=== PATIENT | male | born 1970 ===

== ENCOUNTER 2017-01-20 08:25 | Emergency (ER) | payer OTHER ==
[2017-01-20 09:10] VITALS: BP 117/73
--- NOTE | 2017-01-20 10:53 | UC ---
Laceration HPI - HPI Summary HPI Summary: laceration on right pointer finger this morning at 7:30 on a razor blade lots of bleeding at first hasn't taken any medication for pain - History Of Current Complaint Chief Complaint: UCLaceration Stated Complaint: FINGER LACERATION Time Seen by Provider: 01/20/17 10:47 - Allergies/Home Medications Allergies/Adverse Reactions: Allergies Allergy/AdvReac Type Severity Reaction Status Date / Time No Known Allergies Allergy Verified 01/20/17 09:05 Home Medications: Home Medications NK [No Home Medications Reported] 01/20/17 [History Confirmed 01/20/17] PMH/Surg Hx/FS Hx/Imm Hx Previously Healthy: Yes - Surgical History Surgical History: None - Family History Known Family History: Positive: Diabetes - father Negative: Cardiac Disease, Hypertension - Social History Occupation: Employed Full-time Lives: With Family Alcohol Use: Daily Substance Use Type: None Smoking Status (MU): Never Smoked Tobacco Review of Systems Constitutional: Negative Skin: Other - laceration Eyes: Negative ENT: Negative Respiratory: Negative Cardiovascular: Negative Gastrointestinal: Negative Genitourinary: Negative Motor: Negative Neurovascular: Negative Musculoskeletal: Negative Neurological: Negative Psychological: Negative All Other Systems Reviewed And Are Negative: Yes Physical Exam Triage Information Reviewed: Yes Appearance: No Pain Distress, Well-Nourished Vital Signs: Initial Vital Signs Temp 98.5 F 01/20/17 09:06 Pulse 67 01/20/17 09:06 Resp 16 01/20/17 09:06 BP 117/73 01/20/17 09:06 Pulse Ox 97 01/20/17 09:06 Vital Signs Reviewed: Yes Eyes: Positive: Conjunctiva Clear ENT: Positive: Pharynx normal, TMs normal Neck: Positive: No Lymphadenopathy Respiratory: Positive: Lungs clear, Normal breath sounds, No respiratory distress Cardiovascular: Positive: RRR, No Murmur, Pulses Normal Abdomen Description: Positive: Nontender, Soft Bowel Sounds: Positive: Present Musculoskeletal Exam: Normal Neurological: Positive: Alert Psychological Exam: Normal Skin: Positive: Other - right pointer finger 8mm accros top of finger into fingernail Laceration Repair - Laceration Repair 1 Description: Linear Laceration Size After Repair: Length (cm) - 8mm, Width (mm) - 1mm, Depth (mm) - 1,, Modified For Repair: No Cleansing Completed Via Routine Prep: Yes Irrigation With Pressure Irrigation Device: No Closure Material: Skin Adhesive, SteriStrips Laceration Course/Dx - Differential Dx - Laceration/Wound Differental Diagnoses: Laceration - simple laceration- right pointer finger Provider Diagnoses: simple laceration right pointer finger Discharge - Discharge Plan Condition: Stable Disposition: HOME Patient Education Materials: Laceration (ED), Skin Adhesive Care (ED), Steristrips (ED) Referrals: Dieudonne Guzman MD [Primary Care Provider] - Additional Instructions: Keep your finger clean and dry leave the steristrips in place until they fall off Take acetaminophen or ibuprofen for fever or pain If you have any increase in redness swelling pain in your finger or you develop a fever please be seen by a medical provider Please review your discharge instructions. If your symptoms do not improve please call your primary care provider or return to urgent care.
[2017-01-20] MEDS ORDERED: Benzoin Compound STICK TOPICAL ONE (10:55)
== END 2017-01-20 11:00 | disposition home or self-care (01) ==
LOC: UCEAST 08:25
DX: S61.210A Laceration without foreign body of right index finger without damage to nail, initial encounter (principal); W26.8XXA Contact with other sharp object(s), not elsewhere classified, initial encounter; Y92.9 Unspecified place or not applicable
CPT/HCPCS: 12001; 99211; G0463

== ENCOUNTER 2018-03-29 09:44 | Emergency (ER) | payer OTHER ==
[2018-03-29 09:54] VITALS: BP 109/68
--- NOTE | 2018-03-29 10:22 | UC ---
Skin Complaint HPI - HPI Summary HPI Summary: 47 yo male presents with rash to bottom of right foot. He tells me that two days ago he noticed a red ring on the bottom of his right foot that was mildly itchy. Has been applying lotrimin cream with mild relief. He is very worried about lyme disease and thinks this may be a bull's eye rash. Does not recall ever being bitten by a tick. Denies fever, chills, headache, vision changes, body aches, or fatigue. - History of Current Complaint Chief Complaint: UCRash Time Seen by Provider: 03/29/18 10:22 Stated Complaint: RASH Hx Obtained From: Patient Onset/Duration: Sudden Onset Current Severity: None Pain Intensity: 0 - Allergy/Home Medications Allergies/Adverse Reactions: Allergies Allergy/AdvReac Type Severity Reaction Status Date / Time No Known Allergies Allergy Verified 03/29/18 09:48 Home Medications: Home Medications Cholecalciferol TAB* [Vitamin D TAB*] 1,000 mg PO DAILY 03/29/18 [History Confirmed 03/29/18] Cinnamon Bark [Cinnamon] 500 mg PO DAILY 03/29/18 [History Confirmed 03/29/18] Review of Systems Constitutional: Negative Skin: Rash Respiratory: Negative Cardiovascular: Negative Neurovascular: Negative Musculoskeletal: Negative Neurological: Negative Psychological: Negative All Other Systems Reviewed And Are Negative: Yes PMH/Surg Hx/FS Hx/Imm Hx - Additional Past Medical History Additional PMH: None Previously Healthy: Yes - Surgical History Surgical History: None - Family History Known Family History: Positive: Diabetes - father Negative: Cardiac Disease, Hypertension - Social History Occupation: Employed Full-time Lives: With Family Alcohol Use: Daily Alcohol Amount: 0-2 drinks/ day Substance Use Type: None Smoking Status (MU): Never Smoked Tobacco Physical Exam - Summary Physical Exam Summary: GENERAL: NAD. WDWN. No pain distress. SKIN: Right foot plantar surface with 2.0cm mildly erythematous ring that is itchy. No central clearing. No streaking, bleeding, or drainage. NECK: Supple. Nontender. No lymphadenopathy. CHEST: No accessory muscle use. Breathing comfortably and in no distress. CV: Pulses intact. Cap refill <2seconds NEURO: Alert. CN II-XII grossly intact. PSYCH: Age appropriate behavior. Triage Information Reviewed: Yes Vital Signs: Initial Vital Signs Temp 98 F 03/29/18 09:50 Pulse 69 03/29/18 09:50 Resp 16 03/29/18 09:50 BP 109/68 03/29/18 09:50 Pulse Ox 99 03/29/18 09:50 Course/Dx - Course Course Of Treatment: Appears most consistent with tinea or other fungal infection. Advised to keep using lotrimin and f/u with dermatology if does not improve - Diagnoses Provider Diagnoses: Tinea infection right plantar surface Discharge - Sign-Out/Discharge Documenting (check all that apply): Patient Departure All imaging exams completed and their final reports reviewed: No Studies - Discharge Plan Condition: Stable Disposition: HOME Patient Education Materials: Athlete's Foot (ED) Referrals: Dieudonne Guzman MD [Primary Care Provider] - Abhay Madison MD [Medical Doctor] - If Needed Additional Instructions: If you develop a fever, shortness of breath, chest pain, new or worsening symptoms - please call your PCP or go to the ED. 1) Keep using your lotrimin cream twice a day - this may take weeks to fully resolve - Billing Disposition and Condition Condition: STABLE Disposition: Home
== END 2018-03-29 10:58 | disposition home or self-care (01) ==
LOC: UCEAST 09:44
DX: B35.3 Tinea pedis (principal)
CPT/HCPCS: 99211; G0463

== ENCOUNTER 2018-08-19 10:50 | Day surgery (SDC) | payer OTHER ==
[~2018-08-19 10:50] MED LIST: Buffered Lidocaine 0.9% SYRIN* 5 ML/SYR SYRINGE INTRADERM ONE; Lactated Ringers 1000 ML Bag* 1,000 ML IV SCH; Sodium Citrate/Citric Acid* 15 ML UDC PO ONE
[2018-08-19] MEDS ORDERED: Sodium Citrate/Citric Acid* 15 ML UDC ONE (11:15)
[2018-08-19] MEDS ORDERED: Oxymetazoline 0.05% NASAL SPR* 15 ML BTL ONE ×2 (12:15→12:39)
[2018-08-19] MEDS ORDERED: Lidocaine 4% TOPICAL* 50 ML TOP.SOLN ONE (12:15)
[2018-08-19] MEDS ORDERED: Lidocain 1% EPI 1:100,000 * 30 ML MDV ONE (12:16)
[2018-08-19] MEDS ORDERED: fentaNYL* 50 MCG/ML 2 ML VIAL (100 MCG VIAL) ONE (13:55)
[2018-08-19] MEDS ORDERED: Midazolam* 1 MG/ML 2 ML VIAL (2 MG) ONE (13:55)
[2018-08-19] MEDS ORDERED: Dexamethasone IV* 4 MG/ML 1 ML (4 MG) ONE (13:56)
[2018-08-19] MEDS ORDERED: Lidocaine 2% PF * 5 ML VIAL ONE (13:56)
[2018-08-19] MEDS ORDERED: Propofol* 10 MG/ML 20 ML BTL ONE (13:56)
[2018-08-19] MEDS ORDERED: Bacitracin OINTMENT* 0.5% 0.5 oz TUBE ONE (15:00)
[2018-08-19] MEDS ORDERED: Naloxone* 0.4 MG/ML 1 ML VIAL IV PRN (15:39)
[2018-08-19] MEDS ORDERED: fentaNYL* 50 MCG/ML 2 ML VIAL (100 MCG VIAL) IV PRN (15:39)
[2018-08-19] MEDS ORDERED: Ondansetron INJ* 2 MG/ML VIAL IV PRN (15:39)
[2018-08-19 17:01] VITALS: BP 127/95
--- NOTE | 2018-08-19 21:03 | OP ---
DATE OF OPERATION: 08/19/18 - [facility] DATE OF : 66 SURGEON: Lewis Chowdhury MD EVS MANAGER: None. ANESTHESIA: General. PRE-OP DIAGNOSES: 1. Deviated nasal septum. 2. Bilateral inferior turbinate hypertrophy. POST-OP DIAGNOSES: 1. Deviated nasal septum. 2. Bilateral inferior turbinate hypertrophy. OPERATIVE PROCEDURE: Septoplasty with bilateral outfracture and cautery of the inferior turbinates. INDICATIONS: This is a 48-year-old male with longstanding nasal airway obstruction as well as sleep apnea. He has essentially complete nasal airway obstruction on the right and very marginal left nasal airway. Due to severe septal deviation and bilateral inferior turbinate hypertrophy, the decision was made to proceed with septoplasty and bilateral inferior turbinate reduction as a means to improve nasal airflow, potentially improve his sleep apnea and also to potentially improve his ability to interface comfortably with CPAP. ESTIMATED BLOOD LOSS: Approximately 30 cc. SPECIMEN: Septal cartilage and bone was discarded. DESCRIPTION OF PROCEDURE: The patient was brought to the operating room. General anesthesia was induced and oral endotracheal tube was placed. The patient's head was draped in towels and the drape was placed over the body. A time-out was performed. A total of 16 cc of 1% lidocaine with 1:100,000 epinephrine was infiltrated into both sides of the nasal septum and the inferior turbinates. Afrin and lidocaine-soaked pledgets were placed into both nasal cavities. Once adequate time had been allotted for vasoconstriction, the procedure was begun. A left hemitransfixion incision was made with a 15-blade. A mucoperichondrial flap was elevated. This was elevated without any fenestration. A 15-blade was then used to make a secondary incision in the quadrangular cartilage about a centimeter posterior to the caudal margin. This allowed access to the submucoperichondrial space on the right and a flap was elevated on that side as well. There was severe sharp septal deviation with spurring on the right and there was a linear fenestration of the flap created on the right side. A variety of instruments including Alfreda double-action swivel knife, double-action rongeurs, and double- action scissors were used to remove deviated portions of septal cartilage and bone. Once the deviated cartilage and bone was removed, a single large piece of cartilage was selected. It was morselized and used to reconstruct the septal defect. It was placed between the mucoperichondrial flaps and sutured in place with a 4-0 gut. The turbinates were infractured. Multiple passes were made through each turbinate using the Elmed bipolar device and then they were outfractured. Septal splints were placed and secured with a 4-0 Prolene. The hemitransfixion incision was closed with 4-0 chromic gut. The patient was then extubated and delivered to the PACU in stable condition. [id number]/[facility] #: [id number] YESSI
== END 2018-08-19 17:04 | disposition home or self-care (01) ==
LOC: OR 10:50
PROVIDERS: ATTEND Otolaryngology
DX: J34.2 Deviated nasal septum (principal); J34.3 Hypertrophy of nasal turbinates; Z87.891 Personal history of nicotine dependence; G47.33 Obstructive sleep apnea (adult) (pediatric); F41.9 Anxiety disorder, unspecified
CPT/HCPCS: A9270-GY; J1100; J2250; J2704; J3010